=== PATIENT | male | born 1970 | race Caucasian/White ===

== ENCOUNTER 2018-08-07 13:45 | Outpatient (CLI) | payer OTHER ==
--- NOTE | 2018-08-07 15:56 | MRI ---
RIGHT UPPER EXTREMITY MRI WITHOUT IV CONTRAST: HISTORY: Injury of right shoulder, right shoulder pain following an injury at work. FINDINGS: Multiplanar, multisequence MRI examination of the right shoulder is performed. AC joint arthrosis ch anges are noted with some minimal subchondral cystic changes and adjacent marrow edema with some prom inent downsloping of the lateral acromion as well as some undersurface spurring of the lateral clavic le. There appears to be a small focus of undersurface increased signal at the infraspinatus, possibl y a low-grade partial thickness undersurface tear. There is some thickening of the biceps tendon in the intraarticular region, evidence for some biceps tendinopathy. Abnormal signal associated with th e superior labrum, evidence for a SLAP tear. Small subchondral cystic focus of the posterior inferio r glenoid, evidence for some degenerative arthrosis change. Rotator cuff muscles are within normal l imits of signal and volume. IMPRESSION: Acromioclavicular joint arthrosis changes. Evidence for superior labrum anterior to posterior tear. Small subchondral cystic focus of the posterior inferior glenoid. Small punctate undersurface inser tional tear of the infraspinatus tendon. Mild subscapularis tendinopathy. POS: [facility]
== END 2018-08-07 13:46 | disposition home or self-care (01) ==
LOC: SCSMRI 13:45
PROVIDERS: ATTEND Family Medicine
DX: S49.91XD Unspecified injury of right shoulder and upper arm, subsequent encounter (principal); M19.011 Primary osteoarthritis, right shoulder; S43.491A Other sprain of right shoulder joint, initial encounter; M75.101 Unspecified rotator cuff tear or rupture of right shoulder, not specified as traumatic; M75.82 Other shoulder lesions, left shoulder

== ENCOUNTER 2018-09-26 06:01 | Day surgery (SDC) | payer OTHER ==
[2018-09-25 13:40] VITALS: BMI 32.5
[2018-09-26] MEDS ORDERED: Midazolam HCl 2 mg/2 ml Vial ONE (06:18)
[2018-09-26] MEDS ORDERED: Fentanyl 100 MCG/2 ML VIAL ONE ×2 (06:18→07:34)
[2018-09-26] MEDS ORDERED: ceFAZolin Sodium (SDC) 2 GM/100 ML BAG ONE (06:38)
[2018-09-26] MEDS ORDERED: Bupivacaine/Epinephrine 0.25% 30 ML VIAL ONE (06:53)
[2018-09-26] MEDS ORDERED: Ondansetron PF 4 MG/2 ML Vial IVP PRN (07:31)
[2018-09-26] MEDS ORDERED: Zolpidem Tartrate 5 MG TAB PO PRN (07:31)
[2018-09-26] MEDS ORDERED: Ketorolac Tromethamine 30 MG/ML VIAL IVP PRN (07:31)
[2018-09-26] MEDS ORDERED: Fentanyl 100 MCG/2 ML VIAL IV PRN (07:31)
[2018-09-26] MEDS ORDERED: HYDROcodone/Acetaminophen 10/325 mg Tablet PO PRN ×2 (07:31)
[2018-09-26] MEDS ORDERED: Promethazine HCl 25 MG/ML VIAL IM PRN (07:31)
[2018-09-26] MEDS ORDERED: Ropivacaine 0.2% 550 ML 550 ML NERVE BLCK SCH (07:31)
[2018-09-26] MEDS ORDERED: traMADol HCl 50 MG TAB PO PRN ×2 (07:31)
--- NOTE | 2018-09-26 10:25 | OP ---
DATE OF PROCEDURE: 09/26/2018 PREOPERATIVE DIAGNOSIS: Right shoulder degenerative labral tear with biceps instability and tendinosis, impingement and acromioclavicular joint arthritis. POSTOPERATIVE DIAGNOSES: 1. Right shoulder degenerative labral tear with biceps instability and tendinosis, impingement and acromioclavicular joint arthritis. 2. Grade 3 defect humeral head with multiple small cartilaginous loose bodies. PROCEDURES PERFORMED: Right shoulder arthroscopy with debridement and shaving of degenerative labral tear, debridement of unstable chondral flaps, removal of multiple cartilaginous loose bodies, subacromial decompression, open distal clavicle excision, and open biceps tenodesis. ACADEMIC DEPARTMENT CHAIR: Glenn Perez PA-C ESTIMATED BLOOD LOSS: Around 100. COMPLICATIONS: None. ANESTHESIA: He had general anesthetic. He had a block. IMPLANT: Our only implant was a biceps tenodesis screw from [employer], which was 7 x 23 [employer] Bio-Tenodesis screw. 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 DESCRIPTION OF PROCEDURE: After all appropriate consent forms were explained and signed, he was taken to the operative room and at this time was given general anesthetic. Once the level of anesthesia was appropriate, he was rolled into the left lateral decubitus position with all bony prominences well padded. Axillary roll was placed underneath the left axilla and a candelario bag was inflated to hold him in this position. The arm was taken through full range of motion and then suspended with 15 pounds. We then prepped and draped the right shoulder and upper extremity in standard surgical fashion. We then gamaliel out bony anatomical landmarks and infiltrated the subacromial space with Marcaine with epinephrine. Posterior portal was established and the scope was placed into the shoulder joint. Anterior working portal was made just anterior to the biceps tendon. Diagnostic arthroscopy commenced. The articular surface of the glenoid was in pretty good condition. There were multiple small cartilaginous loose bodies seen on the face of the glenoid as well as in the axillary pouch. The donor area for this was a central area of the humeral head, which had some grade 2 and 3 chondromalacia. There were some unstable chondral flaps. The chondrotome was then placed into the joint and it was used to suck out and remove all the small loose cartilaginous bodies. We also used this to debride unstable chondral flaps. The subscapularis was noted to be intact. The biceps tendon itself was intact, however as it went toward its insertion site on the labrum, it was very fat and wide and the area superior to this on the undersurface of the cuff was irritated and red with significant amount of synovitic change. There was also a significant amount of synovitis posterior to the superior labrum. At this time, the surface and the shaver were used to debride this excess synovium and to recreate the space between the superior labrum and the undersurface of the rotator cuff. Once this was done, we used an 18-gauge needle and placed a stitch through the biceps tendon and then cut it off at its insertion using the SERFAS energy. At this time, remaining labrum was intact. Again, the glenoid was in good condition. The rotator cuff was found to be in good condition and no more loose bodies were noted. Therefore, the scope was removed and replaced into the subacromial space. Lateral working portal was made. Significant amount of subacromial bursitis was removed and once this was done, a small amount of bone was taken off the acromion with a shaver. As we got over to the AC joint, we noted a large protuberance of the distal clavicle, actually pushing down into the muscle fibers of the rotator cuff itself. It was decided at this time that this needed to be removed. This also looked poorly on the MRI scan. The rotator cuff itself was in good condition and once we removed the bursa, we went ahead and removed the scope and drained the shoulder. We had previously marked the AC joint with a needle. We then used a 15 blade to cut down where this needle adwoa was down through the skin. The Bovie was used to coagulate any brisk venous bleeding. We then took full-thickness periosteal flaps to expose the end of the clavicle. The saw was used to remove 1 cm distal clavicle. The edges were smoothed off with a rasp and a small amount of bone wax was placed onto the bleeding cancellous bone. Any remnant of the meniscus was removed and at this time, we thoroughly irrigated and dried the wound. Multiple interrupted deep Vicryl was used to close our periosteal sleeve. We then used 2-0 Vicryl to close subdermal. We then turned our attention to the biceps. Where the suture came out, we made a skin incision down through the skin and Bovie was used to coagulate any brisk venous bleeding. We then opened the deltoid fascia sharply and used finger dissection to get down to the humerus bone. Once down to the humerus, we were able to find the bicipital groove. The bicipital groove was opened. Any brisk venous bleeding was coagulated. The bicipital groove was cleaned out. The tendon was brought out into the wound. We then sutured the tendon with the loop suture, followed by cutting off the intra-articular portion of the tendon. This sized to be near a 7. Secondary to hard bone, we decided to ream of the 7.5. Therefore, we placed our pin in the bicipital groove. We reamed to a depth of greater than 25 mm and at this time, the tunnel was cleaned out of any loose bone. We then placed our 7 x 23 [employer] Bio-Tenodesis screw in standard fashion. Sutures were tied over top of this, so the screw could not back out. We then thoroughly irrigated and dried. We allowed our deltoid to close on top of this. We ran a Vicryl to close our deltoid fascia, 2-0 Vicryl; and sutures again were used to close skin. At this time, bulky sterile dressing was applied. The patient was awakened. He was taken to the recovery room in stable condition. All counts were correct at the end of the case and he did receive preoperative IV antibiotics. Job ID: [id number]
== END 2018-09-26 13:10 | disposition home or self-care (01) ==
LOC: SDC 06:01
PROVIDERS: ATTEND Orthopaedic Surgery
PROC: 0LS10ZZ Reposition Right Shoulder Tendon, Open Approach (ICD-10-PCS; principal; 2018-09-26)
PROC: 0RBJ4ZZ Excision of Right Shoulder Joint, Percutaneous Endoscopic Approach (ICD-10-PCS; principal; 2018-09-26)
PROC: 0RNJ4ZZ Release Right Shoulder Joint, Percutaneous Endoscopic Approach (ICD-10-PCS; principal; 2018-09-26)
PROC: 0PB90ZZ Excision of Right Clavicle, Open Approach (ICD-10-PCS; principal; 2018-09-26)
PROC: 0RHJ04Z Insertion of Internal Fixation Device into Right Shoulder Joint, Open Approach (ICD-10-PCS; principal; 2018-09-26)
DX: S43.431A Superior glenoid labrum lesion of right shoulder, initial encounter (principal); M75.21 Bicipital tendinitis, right shoulder; M19.011 Primary osteoarthritis, right shoulder; M24.011 Loose body in right shoulder; M25.811 Other specified joint disorders, right shoulder; M94.211 Chondromalacia, right shoulder; M65.811 Other synovitis and tenosynovitis, right shoulder; I10 Essential (primary) hypertension; J45.909 Unspecified asthma, uncomplicated; F90.9 Attention-deficit hyperactivity disorder, unspecified type; Z79.899 Other long term (current) drug therapy
CPT/HCPCS: A4306; C1713; J0690; J2250; J2795; J3010; J7620